=== PATIENT | female | born 1965 | race Caucasian/White ===

== ENCOUNTER 2016-08-23 11:55 | Emergency (ER) | payer BC ==
[~2016-08-23] VITALS: Ht 165.1 cm; Wt 80.7 kg
[2016-08-23 12:43] LABS: HEMATOCRIT 42.5 % (36.0-46.0); MCHC 32.5 G/DL (30.0-36.0); MCV 83.2 FL (83-99); MEAN PLAT.VOLUME 10.4 uM^3 (9.5-12.4); PLATELET COUNT 253 K/uL (156-360); RBC DIS.WIDTH-CV 12.7 % (11.8-14.6); RBC DIS.WIDTH-SD 38.6 % (39-53); RED BLOOD COUNT 5.11 M/uL (3.80-5.20); WHITE BLOOD COUNT 7.1 K/uL (4.1-10.2)
[2016-08-23 12:59] LABS: CHLORIDE 104 mEq/L (99-109); POTASSIUM 4.3 mEq/L (3.7-5.4); SODIUM 139 mEq/L (136-147)
[2016-08-23 13:00] LABS: GLUCOSE 134 mg/dL (70-99)
[2016-08-23 13:02] LABS: ANION GAP 10 MEQ/L (2-14)
[2016-08-23 13:04] LABS: GFR ESTIMATE (CALCULATED) > 59 mL/min/
[2016-08-23 13:05] LABS: UREA NITROGEN (BUN) 15 mg/dL (9-23)
[2016-08-23 13:06] LABS: TROP-I INTERPRETATION NEGATIVE; TROPONIN-I < 0.01 ng/mL (0.0-0.30)
[2016-08-23] MEDS ORDERED: TRESIBA FL100 UNIT/1 SC (16:00)
[2016-08-23] MEDS ORDERED: NOVOLOG PE100 UNITS/ SC (16:01)
[2016-08-23 16:10] LABS: TROP-I INTERPRETATION NEGATIVE; TROPONIN-I < 0.01 ng/mL (0.0-0.30)
[2016-08-23] MEDS ORDERED: VALTREX1000 MG PO (16:12)
[2016-08-23 17:49] VITALS: BP 124/78
[2016-08-24 12:38] LABS: LYME DISEASE SEROLOGY SCREEN NEGATIVE (NEGATIVE)
== END 2016-08-23 17:51 | disposition home or self-care (01) ==
LOC: EME 11:55
PROVIDERS: Nurse Practitioner Family
DX: R20.0 Anesthesia of skin (principal); R20.2 Paresthesia of skin; B00.1 Herpesviral vesicular dermatitis; R00.2 Palpitations; E10.9 Type 1 diabetes mellitus without complications
CPT/HCPCS: 71020; 80048; 84484; 85027; 86618; 87651 90; 93005; 99281; 99284